=== PATIENT | female | born 1965 | race Caucasian/White ===

== ENCOUNTER 2020-06-04 08:16 | Emergency (ER) | payer OTHER ==
[~2020-06-04] VITALS: Ht 160 cm; Wt 63.0 kg
[2020-06-04 08:45] VITALS: BP 131/81
[2020-06-04] MEDS ORDERED: Regeneron EUA MISC ONE (08:45)
[2020-06-04] MEDS ORDERED: Regeneron EUA 2,400 MG in NS 255 ML IVPB SCH (08:45)
--- NOTE | 2020-06-04 08:45 | NUR ---
ED Nurse Note: Pt walked in from home, positive for covid. Pt reports cough and chest tightness with hx of asthma. Respirations even and unlabored on room air. Vitals stable as documented. A+Ox4, speaking in complete sentences.
--- NOTE | 2020-06-04 08:51 | Emergency Room Report ---
History of Present Illness General Chief Complaint: Flu Like Symptoms Source: Patient Present Illness HPI Disclaimer: Please note that this report is being documented using DRAG[employer] technology. This can lead to erroneous entry secondary to incorrect interpretation by the dictating instrument. HPI: This a 55-year-old female with history of asthma presenting for monoclonal antibody infusion after testing positive for COVID-19. Patient has been symptomatic approximately 4 days and tested positive by rapid test yesterday. had previously tested positive. She reports low-grade fevers, myalgias, fatigue and shortness of breath. Increased wheezing. Nonproductive cough. Has been taking Tylenol, vitamin supplements, Mucinex. Denies chest pain or palpitations. Denies nausea, vomiting or diarrhea. No prior history of anaphylaxis or notable allergies. PMH: Asthma PSH: Reviewed Allergies: Denied Social Hx: Non-smoker Allergies: Coded Allergies: No Known Allergies (Unverified , 06/04/20) COVID-19 Screening Contact w/high risk pt: No Experienced COVID-19 symptoms?: Yes COVID-19 Testing performed [employer]: Yes COVID-19 Screening: Positive COVID-19 COVID-19 Testing Source: md office Patient History Last Menstrual Period: none Now: No Nursing Documentation-PMH Past Medical History: No History, Except For Hx Cardiac Problems: Yes - high cholesterol Hx Asthma: Yes Hx Gastrointestinal Problems: Yes - diverticulitis Review of Systems All Other Systems: negative except mentioned in HPI Physical Exam Vital Signs Date Time Temp Pulse Resp B/P (MAP) Pulse Ox O2 Delivery O2 Flow Rate FiO2 06/04/20 08:28 99.3 85 20 125/86 (99) 98 Room Air General: Awake and alert, no acute distress HEENT: NC/AT. EOMI. Cardiovascular: RRR. S1 and S2 normal. No murmur appreciated Resp: Normal work of breathing. No cough, wheezing or crackles appreciated Skin: Intact. No abrasions, laceration or rash over the exposed skin MSK: Normal tone and bulk. Moving all extremities. No obvious deformity. Neuro: Awake and alert. Mentating appropriately. Medical Decision Making Diagnostic Impression: Primary Impression: COVID-19 ER Course 55-year-old female presents for monoclonal antibody infusion after testing positive for COVID-19 yesterday. Symptomatic for the past 3 to 4 days. Arrives with stable vital signs well-appearing. No infiltrates identified on chest x-r ay. Patient meets criteria for monoclonal antibody infusion. Provided with infusion drug fact sheet for patients who are considering receiving IV infusion. Patient understands and is aware that this medication is authorized for emergency use by the FDA and is still undergoing full testing. Understands monitoring necessary following infusion. Patient understands that this medic ation is intended to reduce symptoms and prevent hospitalization however the patient may require further testing, interventions and even hospitalization if symptoms worsen. Patient understands this is not a cure for COVID-19 infection. Addressed all patient questions. They have consented to receive monoclonal antibody infusion and for monitoring 1 hour post infusion for anaphylactic reaction. Infusion was administered via IV over the duration of 1 hour. The patient was monitored and observed for any reactions to infusion that require acute medical intervention. The patient did not have any significant reactions during the 1 hour observation period following infusion and is stable for discharge and outpatient follow-up with PMD. Instructed to return with new or worsening symptoms. Understand agree with this treatment plan. Chest X-Ray Diagnostic Results Chest X-Ray Diagnostic Results : Chest X-Ray Ordered: Yes # of Views/Limited/Complete: 1 View Indication: Shortness of Breath EP Interpretation: Yes Interpretation: no consolidation, no effusion, no pneumothorax, no acute cardiopulmonary disease Impression: No acute disease Electronically Signed by: Electronically signed by Dr. Valdo Vargas MD Last Vital Signs Date Time Temp Pulse Resp B/P (MAP) Pulse Ox O2 Delivery O2 Flow Rate FiO2 06/04/20 08:28 99.3 85 20 125/86 (99) 98 Room Air Disposition: HOME, SELF-CARE Condition: Stable Referrals: [facility] (PCP) Valdo Vargas MD Jun 04, 2020 08:51
[2020-06-04 12:08] VITALS: BP 136/85
--- NOTE | 2020-06-04 12:08 | NUR ---
ER DISCHARGE NOTE: Patient is cleared to be discharged per ERMD, pt is aox4, on room air, with stable vital signs. pt was given dc and prescription instructions, pt was able to verbalize understanding, pt id band and iv site removed without complications. pt is able to ambulate with steady gait. pt took all belongings.
--- NOTE | 2020-06-04 13:18 | Diagnostic Imaging Report ---
Indication: Cough Technique: One view of the chest Comparison: none Findings: Lungs and pleural spaces are clear. Heart size is normal. Impression: No acute process
== END 2020-06-04 12:08 | disposition home or self-care (01) ==
LOC: EMR 08:47
DX: U07.1 COVID-19 (principal); R50.9 Fever, unspecified; M79.10 Myalgia, unspecified site; R53.83 Other fatigue; R06.02 Shortness of breath; Z23 Encounter for immunization; E78.00 Pure hypercholesterolemia, unspecified; J45.909 Unspecified asthma, uncomplicated
CPT/HCPCS: 71045; 96365; 99284; J7050; Q0243